=== PATIENT | female | born 1940 | race Caucasian/White ===

== ENCOUNTER 2017-03-13 14:06 | Emergency (ER) | payer MEDICARE, BC ==
[~2017-03-13 14:06] MED LIST: ADULT LOW DOSE81 M1 PO; ADULT LOW DOSE81 MG PO; ASPIR 8181 M1 PO; BABY ASPIRIN81 MG PO; BACTRIM 400-801 EAC1 PO; BACTRIM DS1 TA1 PO; BUTALB-ACETAMI1 EAC1 PO; BUTALBIT-ACETA1 EAC1 PO; BUTALBITAL COMP PO; CALCIUM600 M1 PO; CALCIUM600 MG PO; CIMETIDINE400 MG PO; CITRATE OF MAG300 M1 PO; COLACE100 M1 PO; COLACE100 MG PO; DIFLUCAN100 M1 PO; HYDROCODON-ACE1 EAC7 PO; HYDROXYCHLOROQ200 M2 PO; IMURAN50 M1 PO; KEFLEX500 M4 PO; MILK OF MAGNESIA PO; MULTI VITAMIN1 EAC1 PO; MULTIVITAMINS1 EAC6 PO; NORVASC5 MG PO; NYSTATIN ORAL S60 M1 SSW; OMEPRAZOLE20 M2 PO; OMEPRAZOLE20 M3 PO; OMEPRAZOLE40 MG PO; PREDNISONE20 MG PO; PREDNISONE50 M1 PO; PRILOSEC40 M1 PO; PROBIOTIC1 EA10 PO; PROBIOTIC1 EAC4 PO; PROTONIX40 M2 PO; REMERON PO; REMERON15 M1 PO; REMERON15 MG PO; REMERON30 MG PO; ROXICODONE5 M2 PO; SYNTHROID100 MC1 PO; SYNTHROID75 MCG PO; TYLENOL325 M1 PO; ULTRAM50 M1 PO; VALIUM2 MG PO; ZESTRIL5 MG PO; ZOFRAN ODT4 MG PO; ZOFRAN4 M1 PO
== END 2017-03-13 16:31 ==
LOC: EDMED 14:06
DX: M54.5 Low back pain (principal); G89.29 Other chronic pain; Z87.81 Personal history of (healed) traumatic fracture; N18.9 Chronic kidney disease, unspecified; K21.9 Gastro-esophageal reflux disease without esophagitis; M06.9 Rheumatoid arthritis, unspecified; M32.9 Systemic lupus erythematosus, unspecified; Z79.82 Long term (current) use of aspirin; Z79.899 Other long term (current) drug therapy; Z90.710 Acquired absence of both cervix and uterus
CPT/HCPCS: J1885